=== PATIENT | male | born 1975 | race Caucasian/White ===

== ENCOUNTER 2018-03-18 08:34 | Emergency (ER) | payer BC ==
[2018-03-18] MEDS ORDERED: METHYLPREDNISOLONE 125 MG INJ ONE (09:33)
[2018-03-18] MEDS ORDERED: COLCHICINE 0.6 MG TAB ONE (09:57)
--- NOTE | 2018-03-18 10:42 | EDPHYS ---
Physician Documentation [facility] Name: Francis Omer Age: 42 yrs Sex: Male : 1975 Arrival Date: 03/18/2018 Time: 08:36 Bed 4 Private MD: Cait Loyd ED Physician Andry Quintana HPI: 03/18 09:26 This 42 yrs old Male presents to ER via Ambulatory with complaints of Gout. kdr 09:26 The patient presents with Pain and swelling to the medical aspect fo the right kdr ankle/foot. He has had the same problem before - last week - and was given medirol pack. Stopped on Wednesday started to have pain again yesterday. The pain is very minor today but he is concerned that if he dose not address it now, it will get worse. The complaints affect the right ankle. Onset: The symptoms/episode began/occurred yesterday. Context: The patient can fully bear weight on the affected extremity. the patient is able to ambulate. Associated signs and symptoms: The patient has no apparent associated signs or symptoms. Modifying factors: The symptoms are alleviated by nothing, the symptoms are aggravated by weight bearing, movement. Severity of symptoms: At their worst the symptoms were mild, in the emergency department the symptoms are unchanged. The patient has been recently seen by a physician: the patient's primary care provider, Last week for same issue. Historical: - Allergies: 08:51 No Known Allergies; hb - Home Meds: 08:51 Lisinopril Oral [Active]; Allopurinol Oral [Active]; Crestor oral oral [Active]; hb Omeprazole Oral [Active]; - PMHx: 08:51 Gout; Hypertension; hb - Immunization history:: Adult Immunizations up to date. - Social history:: Smoking status: Patient/guardian denies using tobacco. - Ebola Screening: : No symptoms or risks identified at this time. ROS: 09:30 Constitutional: Negative for fever, chills, and weight loss, Eyes: Negative for injury, kdr pain, redness, and discharge, ENT: Negative for injury, pain, and discharge, Neck: Negative for injury, pain, and swelling, Cardiovascular: Negative for chest pain, palpitations, and edema, Respiratory: Negative for shortness of breath, cough, wheezing, and pleuritic chest pain, Abdomen/GI: Negative for abdominal pain, nausea, vomiting, diarrhea, and constipation, Back: Negative for injury and pain, : Negative for injury, bleeding, discharge, and swelling, Skin: Negative for injury, rash, and discoloration, Neuro: Negative for headache, weakness, numbness, tingling, and seizure activity. Psych: Negative for depression, anxiety, suicide ideation, homicidal ideation, and hallucinations, Allergy/Immunology: Negative for hives, rash, and allergies, Endocrine: Negative for neck swelling, polydipsia, polyuria, polyphagia, and marked weight changes, Hematologic/Lymphatic: Negative for swollen nodes, abnormal bleeding, and unusual bruising. 09:30 MS/extremity: Positive for pain, tenderness, of the right ankle. Exam: 09:31 Constitutional: This is a well developed, well nourished patient who is awake, alert, kdr and in no acute distress. Head/Face: Normocephalic, atraumatic. Eyes: Pupils equal round and reactive to light, extra-ocular motions intact. Lids and lashes normal. Conjunctiva and sclera are non-icteric and not injected. Cornea within normal limits. Periorbital areas with no swelling, redness, or edema. Neck: Trachea midline, no thyromegaly or masses palpated, and no cervical lymphadenopathy. Supple, full range of motion without nuchal rigidity, or vertebral point tenderness. No Meningismus. Chest/axilla: Normal chest wall appearance and motion. Nontender with no deformity. No lesions are appreciated. Cardiovascular: Regular rate and rhythm with a normal S1 and S2. No gallops, murmurs, or rubs. Normal PMI, no JVD. No pulse deficits. Respiratory: Lungs have equal breath sounds bilaterally, clear to auscultation and percussion. No rales, rhonchi or wheezes noted. No increased work of breathing, no retractions or nasal flaring. 09:31 Musculoskeletal/extremity: Extremities: noted in the right foot - inferior and anterior to medial malleolus: ROM: no acute changes, Circulation is intact in all extremities. Sensation intact. Compartment Syndrome exam of affected extremity: is normal. no numbness, no tingling, no sensation deficit. Vital Signs: 08:51 BP 201 / 102; Pulse 92; Resp 16; Temp 97.2; Pulse Ox 100% on R/A; Pain 6/10; hb 09:17 BP 128 / 77; Pulse 71; Resp 14; Pulse Ox 100% ; bp 10:00 BP 118 / 77; Pulse 79; Resp 12; Pulse Ox 100% ; bp MDM: 09:31 Data reviewed: vital signs, nurses notes, radiologic studies. Counseling: I had a kdr detailed discussion with the patient and/or guardian regarding: the historical points, exam findings, and any diagnostic results supporting the discharge/admit diagnosis, radiology results, the need for outpatient follow up. 10:42 Patient medically screened. kdr 03/18 09:12 Order name: Ankle Right 3 View XRAY; Complete Time: 10:53 kdr Administered Medications: 09:26 Drug: SOLU-Medrol 125 mg Route: IM; Site: right deltoid; bp 09:52 Follow up: Response: No adverse reaction bp 09:52 Not Given (Other Intervention Used): Colchicine-Probenecid 2 tabs PO once bp 09:53 Drug: Colcrys 1.2 mg Route: PO; bp Disposition: 03/18/18 10:42 Discharged to Home. Impression: Medial Right ankle pain. - Condition is Stable. - Discharge Instructions: Gout, [id number]. - Prescriptions for Prednisone 20 mg Oral Tablet - take 2 tablet by ORAL route once daily for 5 days; 10 tablet. Colchicine- Probenecid 0.5-500 mg Oral Tablet - take 1 tablet by ORAL route every 1 hour up to 3 hours; 6 tablet. Tylenol- Codeine #3 300-30 mg Oral Tablet - take 2 tablets by ORAL route every 6 hours As needed; 12 tablet. - Medication Reconciliation Form, Thank You Letter, Prescription Opioid Use form. - Follow up: Cait Loyd MD; When: 2 - 3 days; Reason: If symptoms return, Further diagnostic work-up, Recheck today's complaints, Continuance of care, Re-evaluation by your physician. - Problem is an acute exacerbation. - Symptoms have improved. Signatures: Dispatcher [employer] EDIN Andry Quintana MD MD [facility] Marisela Rouse RN RN Kamron Wright RN RN bp Corrections: (The following items were deleted from the chart) 09:41 09:23 Foot Right 3 View ordered. [facility] 10:58 10:42 03/18/2018 10:42 Discharged to Home. Impression: Medial Right ankle pain. hb Condition is Stable. Forms are Medication Reconciliation Form, Thank You Letter, Antibiotic Education, Prescription Opioid Use. Follow up: Cait Loyd; When: 2 - 3 days; Reason: If symptoms return, Further diagnostic work-up, Recheck today's complaints, Continuance of care, Re-evaluation by your physician. Problem is an acute exacerbation. Symptoms have improved. kdr
--- NOTE | 2018-03-18 10:42 | ER ---
Nurse's Notes [facility] Name: Francis Omer Age: 42 yrs Sex: Male : 1975 Arrival Date: 03/18/2018 Time: 08:36 Bed 4 Private MD: Cait Loyd Diagnosis: Medial Right ankle pain Presentation: 03/18 08:49 Presenting complaint: Right foot pain x 2 days. Transition of care: patient was not hb received from another setting of care. Onset of symptoms was March 18, 2018. Risk Assessment: Do you want to hurt yourself or someone else? Patient reports no desire to harm self or others. Initial Sepsis Screen: Does the patient meet any 2 criteria? No. Patient's initial sepsis screen is negative. Does the patient have a suspected source of infection? No. Patient's initial sepsis screen is negative. Care prior to arrival: None. 08:49 Method Of Arrival: Ambulatory hb 08:49 Acuity: YANI 4 hb Triage Assessment: 09:03 General: Appears in no apparent distress. uncomfortable, Behavior is cooperative, bp appropriate for age, anxious. Historical: - Allergies: 08:51 No Known Allergies; hb - Home Meds: 08:51 Lisinopril Oral [Active]; Allopurinol Oral [Active]; Crestor oral oral [Active]; hb Omeprazole Oral [Active]; - PMHx: 08:51 Gout; Hypertension; hb - Immunization history:: Adult Immunizations up to date. - Social history:: Smoking status: Patient/guardian denies using tobacco. - Ebola Screening: : No symptoms or risks identified at this time. Screenin:52 Abuse screen: Denies threats or abuse. Denies injuries from another. Nutritional hb screening: No deficits noted. Tuberculosis screening: No symptoms or risk factors identified. Fall Risk None identified. Assessment: 09:00 General: SEE TRIAGE NOTE. . bp Vital Signs: 08:51 BP 201 / 102; Pulse 92; Resp 16; Temp 97.2; Pulse Ox 100% on R/A; Pain 6/10; hb 09:17 BP 128 / 77; Pulse 71; Resp 14; Pulse Ox 100% ; bp 10:00 BP 118 / 77; Pulse 79; Resp 12; Pulse Ox 100% ; bp ED Course: 08:36 Patient arrived in ED. mr 08:37 Cait Loyd MD is Private Physician. mr 08:49 Kamron Hayes, RN is Primary Nurse. bp 08:50 Triage completed. hb 08:51 Arm band placed on. hb 09:00 Andry Quintana MD is Attending Physician. kdr 09:17 Patient has correct armband on for positive identification. Bed in low position. Call bp light in reach. Side rails up X2. 09:37 X-ray completed. Portable x-ray completed in exam room. Patient tolerated procedure mh1 well. 09:44 Ankle Right 3 View XRAY In Process Unspecified. EDMS 10:41 Cait Loyd MD is Referral Physician. kdr 10:57 No provider procedures requiring assistance completed. Patient did not have IV access hb during this emergency room visit. Administered Medications: 09:26 Drug: SOLU-Medrol 125 mg Route: IM; Site: right deltoid; bp 09:52 Follow up: Response: No adverse reaction bp 09:52 Not Given (Other Intervention Used): Colchicine-Probenecid 2 tabs PO once bp 09:53 Drug: Colcrys 1.2 mg Route: PO; bp Outcome: 10:42 Discharge ordered by . kdr 10:57 Discharged to home ambulatory. hb 10:57 Condition: stable 10:57 Discharge instructions given to patient, Instructed on discharge instructions, follow up and referral plans. medication usage, Demonstrated understanding of instructions, follow-up care, medications, Prescriptions given X 3. 10:58 Patient left the ED. hb Signatures: Dispatcher [employer] EDKS Andry Quintana MD MD [facility] Radha Rogers Martha 1 Marisela Rouse, RN RN hb Kamron Hayes, RN RN bp
--- NOTE | 2018-03-18 10:48 | RAD REPORT ---
EXAM DESCRIPTION: RAD - Ankle Right 3 View - 03/18/2018 9:42 am CLINICAL HISTORY: PAIN COMPARISON: No comparisons FINDINGS: Mild soft tissue swelling is seen about the ankle. Degenerative changes are present partic ularly at the tibiotalar region. Small calcaneal spurs are seen.
== END 2018-03-18 10:58 | disposition home or self-care (01) ==
LOC: ER 08:34
DX: M25.571 Pain in right ankle and joints of right foot (principal); M10.9 Gout, unspecified; I10 Essential (primary) hypertension
CPT/HCPCS: 96372; 99283; J2930